=== PATIENT | male | born 1990 | race Caucasian/White ===

== ENCOUNTER 2022-05-05 16:15 | Outpatient (RCR) | payer OTHER, SELFPAY | END 2022-07-31 11:10 | disposition home or self-care (01) | PROVIDERS: PCP Physical Medicine & Rehabilitation Pediatric Rehabilitation Medicine; Visit Provider Physical Medicine & Rehabilitation Pediatric Rehabilitation Medicine | DX: M54.51 Vertebrogenic low back pain (principal); Z51.89 Encounter for other specified aftercare | CPT/HCPCS: 97110; 97140; 97164 ==